=== PATIENT | male | born 1980 | race African-American/Black ===

== ENCOUNTER → 2017-11-08 | Day surgery (SDC) | payer OTHER ==
[~2017-11-08] MED LIST: DEXAMETHASONE SOD PHOS 20 MG/5 ML VIAL.; IV RINGERS,LACTATED 1000ML 1,000 ML IV; KETOROLAC 30 MG/ML INJ FOR OR. INJ; LIDOCAINE 1% PF 2 ML VIAL. ID; MIDAZOLAM HCL/PF 2 MG/2 ML VIAL. IV; MORPHINE SULFATE 4 MG/ML DISP.SYRIN. IV; ONDANSETRON PF 4 MG/2 ML VIAL.; ONDANSETRON PF 4 MG/2 ML VIAL. IV; PROPOFOL 20 ML IV; SEVOFLURANE 61 TO 120 MINUTES. IH; fentaNYL PF VIAL 100 MCG/2 ML VIAL; fentaNYL PF VIAL 100 MCG/2 ML VIAL IV
[2017-11-08] MEDS: IV RINGERS,LACTATED 1000ML 1,000 ML IV (10:08)
[2017-11-08] MEDS: BUPIVACAINE-EPI 0.25%-1:200000 50 ML VIAL. (11:21)
[2017-11-08] MEDS: BACITRACIN 50,000 UNIT in IV NORMAL SALINE 500ML BAG 500 ML IRR (11:21)
[2017-11-08] MEDS: fentaNYL PF VIAL 100 MCG/2 ML VIAL IV ×4 (12:16→13:23)
[2017-11-08] MEDS: PROCHLORPERAZINE 10 MG/2 ML VIAL. IV (12:59)
[2017-11-08] MEDS: oxyCODONE/APAP 5/325 1 TAB TABLET PO (12:59)
== END ==
LOC: SURG 09:10
DX: K40.90 Unilateral inguinal hernia, without obstruction or gangrene, not specified as recurrent (principal); Z98.890 Other specified postprocedural states; Z72.89 Other problems related to lifestyle
CPT/HCPCS: 49505; C1781; J0690; J0780; J1100; J1885; J2250; J2405; J2704; J3010; J3490; J7040

== ENCOUNTER 2020-12-19 07:41 | Emergency (ER) | payer OTHER ==
[~2020-12-19] VITALS: Ht 185.4 cm; Wt 107.0 kg
[~2020-12-19 07:41] MED LIST changes: -DEXAMETHASONE SOD PHOS 20 MG/5 ML VIAL.; -IV RINGERS,LACTATED 1000ML 1,000 ML IV; -KETOROLAC 30 MG/ML INJ FOR OR. INJ; -LIDOCAINE 1% PF 2 ML VIAL. ID; -MIDAZOLAM HCL/PF 2 MG/2 ML VIAL. IV; -MORPHINE SULFATE 4 MG/ML DISP.SYRIN. IV; -ONDANSETRON PF 4 MG/2 ML VIAL.; -ONDANSETRON PF 4 MG/2 ML VIAL. IV; +OXYC1TAB15 PO; -PROPOFOL 20 ML IV; -SEVOFLURANE 61 TO 120 MINUTES. IH; -fentaNYL PF VIAL 100 MCG/2 ML VIAL; -fentaNYL PF VIAL 100 MCG/2 ML VIAL IV
[2020-12-19 07:48] VITALS: BP 135/71
[2020-12-19] MEDS ORDERED: HYDR-2761 PO (08:09)
[2020-12-19] MEDS ORDERED: CYCL5TAB PO (08:09)
--- NOTE | 2020-12-19 08:10 | PHYS DOC ---
Past Medical History Past Medical History: No Pertinent History Past Surgical History: No Surgical History Alcohol Use: None General Adult EDM: Chief Complaint: LOWER BACK PAIN OR INJURY HPI: HPI: 40-year-old male presenting to the emergency department today with right-sided low back and hip pain after catching a falling object that was heavy a few weeks ago. He is tried warm baths and stretching with minimal relief. He denies any numbness weakness or tingling. He denies dysuria polyuria or perineal paresthesias fecal or urinary incontinence. Pain is cramping pulling worse with movement and improved with stretching. Review of systems negative for perineal paresthesias polyuria dysuria fevers chills headache or low back pain. All other review of systems negative ED course: 40-year-old male presenting with right-sided musculoskeletal pain in the right low back into the buttocks. Will discharge with oral hydrocodone and Flexeril. Follow-up with PCP in 2 to 3 days. MRI in 5 to 7 days if his pain persist. Review of Systems: Review of Systems: Constitutional: Denies fever or chills. [] Eyes: Denies change in visual acuity. [] HENT: Denies nasal congestion or sore throat. [] Respiratory: Denies cough or shortness of breath. [] Cardiovascular: Denies chest pain or edema. [] GI: Denies abdominal pain, nausea, vomiting, bloody stools or diarrhea. [] : Denies dysuria. [] Integument: Denies rash. [] Neurologic: Denies headache, focal weakness or sensory changes. [] Endocrine: Denies polyuria or polydipsia. [] Lymphatic: Denies swollen glands. [] Psychiatric: Denies depression or anxiety. [] Heart Score: C/O Chest Pain: No Risk Factors: Risk Factors: DM, Current or recent (<one month) smoker, HTN, HLP, family history of CAD, obesity. Risk Scores: Score 0 - 3: 2.5% MACE over next 6 weeks - Discharge Home Score 4 - 6: 20.3% MACE over next 6 weeks - Admit for Clinical Observation Score 7 - 10: 72.7% MACE over next 6 weeks - Early Invasive Strategies Allergies: Allergies: Allergies Coded Allergies Type Severity Reaction Last Updated Verified No Known Drug Allergies 11/08/17 No Physical Exam: PE: Constitutional: Well developed, well nourished, no acute distress, non-toxic appearance. [] HENT: Normocephalic, atraumatic, bilateral external ears normal, oropharynx moist, no oral exudates, nose normal. [] Eyes: PERRLA, EOMI, conjunctiva normal, no discharge. [] Neck: Normal range of motion, no tenderness, supple, no stridor. [] Cardiovascular:Heart rate regular rhythm, no murmur [] Lungs & Thorax: Bilateral breath sounds clear to auscultation [] Abdomen: Bowel sounds normal, soft, no tenderness, no masses, no pulsatile ma sses. [] Skin: Warm, dry, no erythema, no rash. [] Back: Mild tenderness to palpation in the right upper gluteal region in the musculature of the right low back. Nontender midline. No fluctuant masses. No rash. Pain with extension at the knee joint in the low back area. Normal neurovascular status Extremities: No tenderness, no cyanosis, no clubbing, ROM intact, no edema. [] Neurologic: Alert and oriented X 3, normal motor function, normal sensory function, no focal deficits noted. [] Psychologic: Affect normal, judgement normal, mood normal. [] EKG: EKG: [] Radiology/Procedures: Radiology/Procedures: [] Course & Med Decision Making: Course & Med Decision Making Pertinent Labs and Imaging studies reviewed. (See chart for details) [] Dragon Disclaimer: Dragon Disclaimer: This electronic medical record was generated, in whole or in part, using a voice recognition dictation system. Departure Departure Impression: Primary Impression: Right buttock pain Disposition: HOME / SELF CARE / HOMELESS Condition: STABLE Referrals: SALAZAR LINDER MD (PCP) Patient Instructions: Muscle Strain Additional Instructions: EMERGENCY DEPARTMENT GENERAL DISCHARGE INSTRUCTIONS Follow-up with your primary physician in 1 to 2 days. Return to the emergency department if you have any new or concerning findings. Thank you for coming to [facility] Emergency Department (ED) today and trusting us with you care. We trust that you had a positive experience in our Emergency Department. If you wish to speak to the department management, you may call the Director at [phone]. Follow up is important in emergency/acute care visits. This condition should be evaluated by your primary care physician and any necessary consulting services for continued management within a few days (1-2) after discharge. Return to the emergency department if you have any new or concerning symptoms including but not limited to fever, chills, nausea, vomiting, intractable pain, any new rashes, chest pain, shortness of breath, uncontrolled bleeding, difficulty breathing, and/or vision loss. 1. Do you have a private Doctor? If you do not have a private doctor, please ask for a resource list of physicians or clinics that may be able to assist you with follow up care. 2. If a lab test or culture has been done and does not come back immediately, your results will be reviewed and you will be notified if you need a change in treatment. 3. Your care today has been supervised by a physician who is specially trained in emergency care. Many problems require more than one evaluation for a complete diagnosis and treatment. We recommend that you schedule your follow up appointment as recommended to ensure complete treatment of you illness or injury. If you are unable to obtain follow up care and continue to have a problem, or if your condition worsens, we recommend that you return to the ED. 4. We are not able to safely determine your condition over the phone nor are we able to give sound medical advice over the phone. For these safety reasons, if you call for medical advice we will ask you to come to the ED for further evaluation. IF YOUR SYMPTOMS WORSEN OR NEW SYMPTOMS DEVELOP, OR YOU HAVE CONCERNS ABOUT YOUR CONDITION; OR IF YOUR CONDITION WORSENS WHILE YOU ARE WAITING FOR YOUR FOLLOW UP APPOINTMENT; EITHER CONTACT YOUR PRIMARY CARE DOCTOR, THE PHYSICIAN WHOSE NAME AND NUMBER YOU WERE GIVEN, OR RETURN TO THE ED IMMEDIATELY. Scripts Hydrocodone Bit/Acetaminophen (HYDROCODONE-APAP 5-325 ) 1 Tab Tablet 1 TAB PO PRN Q8HRS PRN for sev, #8 TAB 0 Refills Prov: PATY LYONS MD 12/19/20 Cyclobenzaprine Hcl (CYCLOBENZAPRINE HCL) 5 Mg Tablet 1 TAB PO TID PRN PRN for PAIN, #20 TAB Prov: PATY LYONS MD 12/19/20 PATY LYONS MD December 19, 2020 08:10
== END 2020-12-19 08:20 | disposition home or self-care (01) ==
LOC: ER 07:41
DX: M54.5 Low back pain (principal); M25.551 Pain in right hip
CPT/HCPCS: 99283

== ENCOUNTER 2021-07-18 13:47 | Emergency (ER) | payer SELFPAY ==
[~2021-07-18] VITALS: Ht 182.9 cm; Wt 95.7 kg
[~2021-07-18 13:47] MED LIST changes: +CYCL5TAB PO; +HYDR-2761 PO
[2021-07-18 15:20] VITALS: BP 136/81
[2021-07-18] MEDS ORDERED: DIPHTH,PERTUSS(ACELL),TET TOX 0.5 ML DISP.SYRIN. VAX IM ONE (16:15)
--- NOTE | 2021-07-18 16:48 | PHYS DOC ---
Past Medical History Past Medical History: No Pertinent History Past Surgical History: Other Additional Past Surgical Histo: BILATERAL INGUINAL HERNIA REPAIR Smoking Status: Current Every Day Smoker Additional Information: 08/01 ppd Alcohol Use: None General Adult EDM: Chief Complaint: LACERATION/AVULSION HPI: HPI: Patient is a 40 year old male who presents with laceration to his left thumb. Patient reports he was cutting vegetables with a metal knife when he cut the tip of his left thumb around 1130 this morning. At home, he flushed the wound with running tap water and hydrogen peroxide x2. The bleeding stopped prior to arrival. Patient has not had a tetanus vaccination in the last 5 years. He has no other complaints at this time. Review of Systems: Review of Systems: ROS negative except as mentioned in HPI. Heart Score: C/O Chest Pain: No Current Medications: Current Medications Medications (Trade) Dose Ordered Sig/Gaby Start Time Stop Time Status Last Admin Dose Admin Diphtheria/ Tetanus/Acell Pertussis (Boostrix) 0.5 ml ONCE ONCE 07/18/21 16:15 07/18/21 16:16 DC Allergies: Allergies: Allergies Coded Allergies Type Severity Reaction Last Updated Verified No Known Drug Allergies 07/18/21 No Physical Exam: PE: Constitutional: Well developed, well nourished, no acute distress, non-toxic appearance. Cardiovascular: Heart rate regular rhythm, no murmur. Lungs & Thorax: Bilateral breath sounds clear to auscultation. Skin: Superficial 1 cm C-shaped laceration noted to the tip of digit one of the left hand without active bleeding or involvement of the nailbed. Skin otherwise warm, dry, no erythema, no rash. Extremities: Minimal tenderness noted to tip of left digit 1, patient is able to fully flex/extend and oppose the digit. Skin otherwise no cyanosis, no clubbing, ROM intact, no edema, cap refill less than 2 seconds, sensation in tact. Current Patient Data: Vital Signs: Vital Signs Date Time Temp Pulse Resp B/P (MAP) Pulse Ox O2 Delivery O2 Flow Rate FiO2 07/18/21 15:20 98.1 80 16 136/81 (99) 99 Room Air 98.1 Course & Med Decision Making: Course & Med Decision Making Pertinent Labs and Imaging studies reviewed. (See chart for details) Patient is an otherwise healthy 40-year-old male who presents with a laceration to the tip of digit 1 of those left hand. Patient tetanus is out of date and will be updated here in the department. Wound closed with Dermabond. Patient was given wound care instruction and return precautions. Patient understands and is agreeable to discharge plan. Dragon Disclaimer: Dragon Disclaimer: This electronic medical record was generated, in whole or in part, using a voice recognition dictation system. Laceration Repair Lac Repair Indication: Laceration to tip of digit 1 to left hand Procedure: The patient was placed in the appropriate position and anesthesia around the laceration was not necessary. The area was then cleansed in warm soapy water, cleansed with betadine on gauze and irrigated with sterile saline. The laceration was closed with Dermabond. Total repaired wound length: 1 cm Other Items: The patient tolerated the procedure very well. Complications: No complications. Departure Departure Impression: Primary Impression: Laceration of thumb without foreign body without damage to nail Qualified Codes: S61.012A - Laceration without foreign body of left thumb without damage to nail, initial encounter Disposition: HOME / SELF CARE / HOMELESS Condition: STABLE Referrals: SALAZAR LINDER MD (PCP) Patient Instructions: Fingertip Laceration Additional Instructions: The Dermabond applied to your laceration will come off on its own in a period of 7-10 days. During this time, do not submerge your hand in water for periods of time longer than 2 minutes. Keep the wound clean and dry. Return to the emergency department if you develop signs of infection including fever, chills, increased warmth and redness around the wound or purulent discharge. OLLIE NICHOLS Jul 18, 2021 16:48
== END 2021-07-18 17:40 | disposition home or self-care (01) ==
LOC: ER 13:47
DX: S61.012A Laceration without foreign body of left thumb without damage to nail, initial encounter (principal); F17.200 Nicotine dependence, unspecified, uncomplicated; W26.0XXA Contact with knife, initial encounter; Y93.89 Activity, other specified; Y92.89 Other specified places as the place of occurrence of the external cause; Y99.8 Other external cause status
CPT/HCPCS: 12001; 90471; 90715; 99283